=== PATIENT | male | born 1970 | race Caucasian/White ===

== ENCOUNTER 2023-12-24 06:20 | Day surgery (SDC) | payer OTHER, SELFPAY ==
[2023-12-17 08:55] LABS: Hematocrit 43.8 % (39.0-52.0); Hemoglobin 15.5 g/dL (13.0-18.0); Mean Corp Hgb Conc. 35.4 g/dL (33.0-37.0); Mean Corpuscular Volume 93.2 fL (80.0-94.0); Platelet Count 130 10^3/uL (130-400); Red Cell Dist. Width 12.6 % (11.5-14.5)
[2023-12-17 09:28] LABS: Blood Urea Nitrogen 24 mg/dl (9-20); Calcium 9.2 mg/dl (8.4-10.2); Carbon Dioxide 30 mmol/L (22-30); Chloride 101 mmol/L (98-107); Glucose 93 mg/dl (70-99); Potassium 4.2 mmol/L (3.5-5.1); Sodium 137 mmol/L (135-145); eGFR > 60.00
[2023-12-20 11:49] VITALS: BMI 24.5
--- NOTE | 2023-12-21 13:57 | PTCARENOTE ---
Patients 12/16 ECG abnormal- reviewed by Dr. Eduardo- no additional interventions required
[2023-12-24] VITALS (8 sets, daily range): BP systolic 117–134; BP diastolic 74–86; BMI 24.5
[2023-12-24] MEDS: TYLENOL 1000 MG PO (09:03)
[2023-12-24] MEDS: NORMOSOL-R 1000 IV (09:04)
== END 2023-12-24 13:36 | disposition home or self-care (01) ==
LOC: SDS 06:20
PROVIDERS: ATTENDING PHYSICIAN Surgery; FAMILY PHYSICIAN Nurse Practitioner Adult Health
DX: K40.90 Unilateral inguinal hernia, without obstruction or gangrene, not specified as recurrent (principal)
CPT/HCPCS: 49650; 36415; 80048; 85027; 93005; C1781